=== PATIENT | male | born 1950 | race Caucasian/White ===

== ENCOUNTER 2016-07-07 17:12 | Emergency (ER) | payer MEDICARE, BC ==
[~2016-07-07] VITALS: Ht 180.3 cm; Wt 99.8 kg
[~2016-07-07 17:12] MED LIST: CIPR500T94 PO; DOXY100C2 PO; LEVO150T PO; LOSA1TAB12 PO; SILV20CR4 TP; SIMV40TA3 PO; lipitor
[2016-07-07] MEDS ORDERED: SULF1TAB24 PO (18:24)
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
[2016-07-07 18:50] VITALS: BP 129/62
== END 2016-07-07 18:55 | disposition home or self-care (01) ==
LOC: ER 17:12
DX: L03.116 Cellulitis of left lower limb (principal); E78.00 Pure hypercholesterolemia, unspecified; I10 Essential (primary) hypertension; F17.200 Nicotine dependence, unspecified, uncomplicated; I73.9 Peripheral vascular disease, unspecified
CPT/HCPCS: 99283

== ENCOUNTER → 2017-05-24 | Outpatient (CLI) | payer MEDICARE, BC ==
[~2017-05-24] MED LIST changes: +GABA-585 PO; +IOHEXOL 180 MG/ML 10 ML VIAL. IT ONE; +LIDOCAINE 1% Multi-Dose 20 ML VIAL. ID ONE; +SILV20CR14 TP; -SILV20CR4 TP; +SULF1TAB24 PO
--- NOTE | 2017-05-24 15:27 | KCIC ---
CT lumbar spine exam History: Chronic low back pain into the buttock Technique: CT imaging was performed of the lumbar spine after injection for lumbar myelogram. Multiplanar reconstruction images are submitted. Exposure: One or more of the following individualized dose reduction techniques were utilized for this examination: 1. Automated exposure control 2. Adjustment of the mA and/or kV according to patient size 3. Use of iterative reconstruction technique. Comparison: None available Findings: Lumbar vertebral body stature is adequate. There has been posterolateral fusion at L5-S1 at which there are intact bilateral pedicle screws attached to vertical rods and also horizontal bar. There are interbody grafts at L5-S1. There is grade 1 anterior spondylolisthesis L4-5, negligible posterior subluxation of L2 relative L3. There is mild levoscoliosis centered about L4. There is moderate degenerative disc disease at L2-3, L1-2, T12-L1 with vacuum disc disease at these levels. As stated for the myelogram, there is primarily epidural injection although apparently some opacification of the thecal sac at the L4 level. Conus is not well delineated. There is nonspecific relative wall thickening of the visualized urinary bladder. T12-L1: There is disc osteophyte complex, spinal canal not significantly narrowed. There is moderate facet hypertrophic change. There is very mild right and mild to moderate left neural foramina compromise. L1-L2: There is broad posterior disc osteophyte complex with indentation upon the ventral thecal sac, spinal canal not significantly narrowed. There is moderate facet degenerative change. There is moderate to severe right and moderate left neural foramina compromise mostly from facet hypertrophic change although also from disc osteophyte complex on the left. L2-L3: There is moderate to severe facet degenerative change. There is broad posterior disc osteophyte complex. There is likely mild the to moderate narrowing of the far left lateral recess. There is fairly severe right and mild to moderate left neural foramina compromise due to facet hypertrophic change and disc osteophyte complex. L3-L4: There is severe bilateral facet hypertrophic change. There is larger right facet osteophyte protruding into the right lateral recess and posterior aspect of the right proximal neural foramen. There is moderate to severe narrowing of the right neural foramen primarily from posteriorly, apparently contact exiting right right L3 nerve root by the large facet osteophyte. There is minimal narrowing of the left neural foramen. There is moderate to severe lateral recess stenosis bilaterally due to facet hypertrophic change, [id number] narrowing of the central canal mostly in the transverse dimension. L4-L5: There has been posterior decompression. There is severe facet hypertrophic change. There is mild partial uncovering of the posterior aspect of the disc due to spondylolisthesis. There is moderate to severe narrowing of the left neural foramen primarily from posteriorly by facet, right neural foramen overall adequate with osteophytes near the undersurface exiting right L4 nerve root in the proximal extraforaminal region. L5-S1: There has been posterior decompression. There is facet hypertrophic change/osteophytes. There is moderate to severe bony narrowing of the left neural foramen. There is severe bony narrowing of the right neural foramen, difficult to visualize exiting right L5 nerve root. Impression: 1. There is grade 1 anterior spondylolisthesis at L4-5, multilevel facet degenerative change. There has been posterolateral fusion at L5-S1, intact hardware. 2. There is multilevel lumbar neural foramina compromise primarily from facet hypertrophic change greatest bilaterally at L1-2, on the right at L2-3 and L3-4, and on the left at L4-5. There is also significant bony narrowing bilaterally at L5-S1. 3. There is moderate to severe lateral recess stenosis bilaterally at L3-4 due to facet hypertrophic change. There is also left lateral recess stenosis at L2-3 from disc osteophyte complex. 4. There is multilevel lumbar degenerative disc disease greatest T12-L1 through L2-3. There is mild lumbar levoscoliosis. 5. Injection for the myelogram is primarily epidural although some opacification of the thecal sac at the L4-5 level. 6. There is nonspecific wall thickening of the visualized urinary bladder. Electronically signed by: Edwin Culp MD (05/24/2017 3:23 PM) [email or web address]
--- NOTE | 2017-05-24 15:28 | KCIC ---
Lumbar Myelogram History: Chronic low back pain into the buttock Technique: Patient was informed of the risks of the procedure to include pain, infection, bleeding, seizures, nerve root injury, and allergic reaction to the contrast. All questions were answered. Patient signed a written consent form for a lumbar myelogram. The patient was placed in a prone oblique position on the flouroscopy table. External site of the lower back was prepped and draped in the usual sterile fashion. Betadine was utilized for cleansing solution. 1% lidocaine was utilized for local anesthesia at the anticipated site of puncture right L4-5 interlaminar space. A 19-gauge guiding needle was advanced into the soft tissues. Through the guiding needle, a 25 gauge Singh needle was advanced under fluoroscopic guidance. Despite needle tip position in the central aspect of the spinal canal and initial return of cerebral spinal fluid, there was mostly epidural injection, only 6 cc Omnipaque 180 injected. No further contrast was injected due to primarily epidural injection. Multiple further attempts to access the thecal sac were unsuccessful. The needles were removed. Fluoroscopic spot images were obtained. The patient was then transferred to the CT department for CT examination of the lumbar spine. There were no immediate complications. Fluoroscopy time: 96 seconds, 17 images Findings: Injection is primarily epidural. There is grade 1 anterior spondylolisthesis at L4-5. There has been posterolateral fusion at L5 and S1 with bilateral pedicle screws attached to vertical rods and also horizontal bar. There are interbody grafts at L5-S1. There is degenerative disc disease with vacuum phenomenon at L2-3, L1-2, and T12-L1. There is multilevel facet hypertrophic change. Impression: 1. Exam is limited as epidural injection. Multiple further attempts to access the thecal sac were unsuccessful. There is grade 1 anterior spondylolisthesis at L4-5. There is posterolateral fusion hardware L5-S1. There is multilevel lumbar degenerative disc disease and facet degenerative change. Electronically signed by: Edwin Culp MD (05/24/2017 3:24 PM) [email or web address]
== END | disposition home or self-care (01) ==
LOC: KCIC 11:56
PROVIDERS: ATTEND Orthopaedic Surgery Orthopaedic Surgery of the Spine
DX: M25.78 Osteophyte, vertebrae (principal); M43.16 Spondylolisthesis, lumbar region; M48.061 Spinal stenosis, lumbar region without neurogenic claudication; M51.36 Other intervertebral disc degeneration, lumbar region
CPT/HCPCS: 72132; 72265

== ENCOUNTER → 2017-05-31 | Outpatient (CLI) | payer MEDICARE, BC ==
[~2017-05-31] MED LIST changes: +GADOBUTROL 10 MMOL/10 ML VIAL IV ONE; -IOHEXOL 180 MG/ML 10 ML VIAL. IT ONE; -LIDOCAINE 1% Multi-Dose 20 ML VIAL. ID ONE
--- NOTE | 2017-05-31 16:55 | KCIC ---
MRI Lumbar Spine without and with contrast History: Lumbar spondylolisthesis, low back pain, pain in the buttocks, previous surgery Technique: Multiplanar, multi sequential pre and postcontrast MR imaging was performed of the lumbar spine. Contrast: 10 cc Gadavist Comparison: May 24, 2017 CT exam Findings: As seen previously, there has been posterolateral fusion with bilateral pedicle screws at L5 and S1, also interbody grafts at L5-S1. There is grade 1 anterior spondylolisthesis at L4-5. There is very minimal posterior subluxation L2 relative L3 and L1 relative to L2. Conus terminates at the L1-L2 level. There is no nodular enhancement of the conus or cauda equina. There is moderate degenerative disc disease L1-2, L2-3, to a somewhat lesser degree at T12-L1 and L4-5. There is degenerative endplate change greatest L2-3 and to lesser degree at L1-2 and T12-L1, also endplate edema at these levels probably reactive/degenerative in etiology. There is no significant enhancement in the intervertebral disc spaces. There is a right renal cyst on the order of 5 cm. T12-L1: There is minimal disc osteophyte complex and bulge. Spinal canal is adequate. There is bilateral facet degenerative change. There is mild right and mild to moderate left neural foramina compromise. L1-L2: There is broad posterior disc osteophyte complex. There is moderate facet degenerative change and mild to moderate buckling of the ligamentum flavum. Spinal canal is overall adequate. There is moderate to severe neural foramina compromise bilaterally. L2-L3: There is moderate to severe facet degenerative change and [id number] buckling of the ligamentum flavum. There is disc osteophyte complex, more eccentric to the left lateral recess, superimposed shallow protrusion. There is moderate to severe left lateral recess stenosis with contact descending left L3 nerve root. There is fairly severe narrowing of the right neural foramen by facet hypertrophic change, also moderate to severe narrowing on the left. L3-L4: There is severe facet hypertrophic change and buckling of the ligamentum flavum. There is fluid in the facet articulations bilaterally. There is disc osteophyte complex. There is severe spinal stenosis, lateral recess stenosis bilaterally. As better seen on CT, there is a large osteophyte in the right lateral recess. There is moderate to severe narrowing of the right neural foramen, [id number] narrowing of the left neural foramen. L4-L5: There again has been posterior decompression. There is severe facet hypertrophic change. There is mild partial uncovering of the posterior aspect of the disc due to spondylolisthesis. There is overall mild attenuation of the thecal sac, greater degree of left lateral recess stenosis. There is moderate to severe narrowing of the left neural foramen, overall mild narrowing of the right neural foramen in part from posteriorly by osteophytes. L5-S1: There has been posterior decompression. There is facet hypertrophic change. Spinal canal is adequate. Neural foramina are poorly evaluated due to artifact from hardware, possible narrowing bilaterally. Impression: 1. There is multilevel lumbar neural foramina compromise as stated greatest on the left at L4-5, on the right at L3-4, bilaterally at L2-3 and L1-2 and probably at L5-S1. 2. There is multilevel moderate degenerative disc disease greatest at L1-2 and L2-3, endplate edema greatest at L2-3 likely reactive/degenerative in etiology. 3. There has been posterolateral fusion L5-S1, posterior decompression of the inferior lumbar spine. 4. There is severe spinal stenosis with lateral recess stenosis at L3-4, also left lateral recess stenosis at L2-3 with contact descending left L3 nerve root. Electronically signed by: Edwin Culp MD (05/31/2017 4:52 PM) [email or web address]
== END | disposition home or self-care (01) ==
LOC: KCIC MRI 15:03
PROVIDERS: ATTEND Orthopaedic Surgery Orthopaedic Surgery of the Spine
DX: M43.16 Spondylolisthesis, lumbar region (principal); M48.061 Spinal stenosis, lumbar region without neurogenic claudication; M51.36 Other intervertebral disc degeneration, lumbar region
CPT/HCPCS: 72158; A9585